=== PATIENT | female | born 1985 | race Caucasian/White ===

== ENCOUNTER 2021-05-06 20:21 | Emergency (ER) | payer BC, MEDICAID, OTHER ==
[~2021-05-06] VITALS: Ht 165.1 cm; Wt 82.0 kg
[2021-05-06] MEDS ORDERED: ACETAMINOPHEN 325MG TABLET PO STA (22:31)
[2021-05-06] MEDS ORDERED: CEFTRIAXONE 1 G PREMIX 50 ML IV ONE (22:45)
[2021-05-06] MEDS ORDERED: AZITHROMYCIN 500 MG in DEXT 5% WATER 250 ML IV ONE (22:45)
[2021-05-07 00:40] LABS: BASOPHILS % 0.3 % (0.0-2.0); EOSINOPHILS % 0.1 % (0.0-5.0); HEMATOCRIT. 39.5 % (36.0-48.0); HEMOGLOBIN. 13.4 g/dL (12.0-16.0); LYMPHOCYTES % 9.5 % (20.0-50.0); MEAN CORPUSCULAR HEMOGLOBIN 29.2 pg (28.0-32.0); MEAN CORPUSCULAR VOLUME 86.1 fL (81.0-99.0); MEAN PLATELET VOLUME 8.9 fl (7.4-10.4); MONOCYTES % 6.9 % (2.0-8.0); NEUTROPHILS % 83.2 % (40.0-76.0); PLATELET 164 x1000/uL (130-400); RED BLOOD CELL COUNT 4.59 mill/uL (4.2-5.4); RED CELL DISTRIBUTION WIDTH 13.5 % (11.6-14.6)
[2021-05-07 00:49] LABS: CHLORIDE 108 mEq/L (98-107)
[2021-05-07 00:58] LABS: CREATINE KINASE 105 IU/L (26-192)
[2021-05-07 01:39] VITALS: BP 108/78
== END 2021-05-07 02:15 | disposition home or self-care (01) ==
LOC: ER 21:03
DX: U07.1 COVID-19 (principal); J12.82 Pneumonia due to coronavirus disease 2019
CPT/HCPCS: 36415; 71045; 80053; 82550; 82728; 83605; 83615; 83880; 84145; 84484; 85025; 85384; 87040; 87426; 87804; 93005; 96365; 96367; 99285; C9803; J0456; J0696; J7060; U0003; U0005